=== PATIENT | female | born 2000 | race Caucasian/White ===

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

== ENCOUNTER → 2022-09-20 | Outpatient (CLI) | payer BC | END | disposition home or self-care (01) | LOC: LABWHC1 11:48 | PROVIDERS: ATTEND Psychiatry & Neurology Psychiatry | DX: F41.1 Generalized anxiety disorder (principal); F90.9 Attention-deficit hyperactivity disorder, unspecified type | CPT/HCPCS: 36415; 93005 ==

== ENCOUNTER 2023-03-02 23:13 | Emergency (ER) | payer BC ==
[2023-03-02 23:31] VITALS: BP 139/89; PULSE 108; RESP 20; TEMP 100.1
--- NOTE | 2023-03-03 00:02 | ED ---
General Adult HPI - General Chief complaint: Needlestick/Exposure Stated complaint: [facility] - Needlestick Time Seen by Provider: 03/02/23 23:39 Source: patient Mode of arrival: ambulatory Limitations: no limitations - History of Present Illness Initial comments: Patient is a 23 -year-old female presents to the emergency department for needle stick injury. Patient was poked in the finger by a blood sugar lancet. The lancet was in the cupboard she does not know who it belongs to. Patient requesting all testing she does not want any prophylactic treatment - Related Data Home Medications Medication Instructions Recorded Confirmed Montelukast Sodium [Singulair] 10 mg PEG/G-TUBE DAILY 12/28/18 03/10/20 Cetirizine HCl [Zyrtec] 10 mg PEG/G-TUBE DAILY 04/01/19 03/10/20 Ketorolac Tromethamine 10 mg PEG/G-TUBE Q8H PRN 05/26/19 03/10/20 Methylphenidate HCl [Ritalin] 10 mg PEG/G-TUBE BID@0800,1500 10/26/19 03/10/20 Naproxen 1,000 mg PEG/G-TUBE BID PRN 10/26/19 03/10/20 Ondansetron [Zofran ODT] 4 mg PEG/G-TUBE DAILY PRN 10/26/19 03/10/20 LORazepam [Ativan] 1 mg PEG/G-TUBE DAILY PRN 01/03/20 03/10/20 Prucalopride Succinate [Motegrity] 2 mg PEG/G-TUBE DAILY 01/03/20 03/10/20 Diclofenac Sodium [Voltaren] 50 mg PEG/G-TUBE DAILY PRN 03/10/20 03/10/20 Fludrocortisone [Florinef] 0.1 mg PEG/G-TUBE DAILY 03/10/20 03/10/20 Fremanezumab-Vfrm [Ajovy] 225 mg SQ Q30D 03/10/20 03/10/20 Ivabradine HCl [Corlanor] 5 mg PEG/G-TUBE BID 03/10/20 03/10/20 Magnesium Oxide [Russell] 500 mg PEG/G-TUBE DAILY 03/10/20 03/10/20 Medroxyprogesterone Acetate 150 mg IM Q90D 03/10/20 03/10/20 [Depo-Provera] Nurtec 75mg 75 mg PEG/G-TUBE DAILY PRN 03/10/20 03/10/20 SUMAtriptan succinate [Imitrex] 4 mg SQ DAILY PRN 03/10/20 03/10/20 Sennosides [Ex-Lax] 15 mg PEG/G-TUBE DAILY PRN 03/10/20 03/10/20 Zomig 5mg [place] 1 spray INTRANASAL DAILY PRN 03/10/20 03/10/20 diphenhydrAMINE [Benadryl] 25 mg PEG/G-TUBE DAILY PRN 03/10/20 03/10/20 hydrOXYzine pamoate [Vistaril] 75 mg PEG/G-TUBE HS 03/10/20 03/10/20 Allergies Allergy/AdvReac Type Severity Reaction Status Date / Time prochlorperazine Allergy Confusion Verified 03/02/23 23:31 [From Compazine] scopolamine Allergy Unknown Verified 03/02/23 23:31 Review of Systems ROS Statement: Those systems with pertinent positive or pertinent negative responses have been documented in the HPI. ROS Other: All systems not noted in ROS Statement are negative. Past Medical History Past Medical History: Syncope Additional Past Medical History / Comment(s): migraines, dizziness, h ypogylcemia, postural orthostatic tachycardia syndrome, gastroparesis has GJ tube and POTS. EOE, Alexa Danlows History of Any Multi-Drug Resistant Organisms: None Reported Past Surgical History: Orthopedic Surgery Additional Past Surgical History / Comment(s): left ankle, left knee GJ surgery, PICC, Botox into endoscopy. Past Anesthesia/Blood Transfusion Reactions: Postoperative Nausea & Vomiting (PONV) Additional Past Anesthesia/Blood Transfusion Reaction / Comment(s): Usually intubated d/t vomitting with anesthesia. Past Psychological History: ADD/ADHD, Anxiety, Depression Smoking Status: Never smoker Past Alcohol Use History: None Reported Past Drug Use History: None Reported - Past Family History Mother Family Medical History: Fibromyalgia, Osteoarthritis (OA) Additional Family Medical History / Comment(s): Anxiety and Depression. General Exam Limitations: no limitations Respiratory exam: Present: normal lung sounds bilaterally. Absent: respiratory distress, wheezes, rales, rhonchi, stridor Cardiovascular Exam: Present: regular rate, normal rhythm, normal heart sounds. Absent: systolic murmur, diastolic murmur, rubs, gallop, clicks Psychiatric exam: Present: normal affect, normal mood Skin exam: Present: warm, dry, intact, normal color. Absent: rash Course Vital Signs 03/02/23 23:29 Temperature 100.1 F H Pulse Rate 108 H Respiratory 20 Rate Blood Pressure 139/89 O2 Sat by Pulse 98 Oximetry Medical Decision Making - Medical Decision Making Was pt. sent in by a medical professional or institution (CLARA Byrd, HOME AND SCHOOL VISITOR, urgent care, hospital, or custodial...) When possible be specific @ -No Did you speak to anyone other than the patient for history (EMS, parent, family, police, friend...)? What history was obtained from this source @ -No Did you review nursing and triage notes (agree or disagree)? Why? @ -I reviewed and agree with nursing and triage notes Were old charts reviewed (outside hosp., previous admission, EMS record, old EKG, old radiological studies, urgent care reports/EKG's, custodial records)? Report findings @ -No old charts were reviewed Differential Diagnosis (chest pain, altered mental status, abdominal pain women, abdominal pain men, vaginal bleeding, weakness, fever, dyspnea, syncope, headache, dizziness, GI bleed, back pain, seizure, CVA, palpatations, mental health)? @ -not applicable EKG interpreted by me (3pts min.). @None X-rays interpreted by me (1pt min.). @ -None done CT interpreted by me (1pt min.). @ -None done U/S interpreted by me (1pt. min.). @ -None done What testing was considered but not performed or refused? (CT, X-rays, U/S, labs)? Why? @ -None What meds were considered but not given or refused? Why? @ -None Did you discuss the management of the patient with other professionals (professionals i.e. CLARA Byrd, HOME AND SCHOOL VISITOR, lab, RT, psych nurse, social organization professor, sap pi developer, teacher, horticultural technical officer, caser up)? Give summary @ -No Was smoking cessation discussed for >3mins.? @ -No Was critical care preformed (if so, how long)? @ -No Were there social determinants of health that impacted care today? How? (Homelessness, low income, unemployed, alcoholism, drug addiction, transportation, low edu. Level, literacy, decrease access to med. care, half-way, rehab)? @ -No Was there de-escalation of care discussed even if they declined (Discuss DNR or withdrawal of care, Hospice)? DNR status @ -No What co-morbidities impacted this encounter? (DM, HTN, Smoking, COPD, CAD, Cancer, CVA, ARF, Chemo, Hep., AIDS, mental health diagnosis, sleep apnea, morbid obesity)? @ -None Was patient admitted / discharged? Hospital course, mention meds given and route, prescriptions, significant lab abnormalities, going to OR and other pertinent info. @ -Discharged Undiagnosed new problem with uncertain prognosis? @ -No Drug Therapy requiring intensive monitoring for toxicity (Heparin, Nitro, Insulin, Cardizem)? @ -No Were any procedures done? @ -No Diagnosis/symptom? @ -Needle stick injury Acute or Chronic, or Acute on Chronic? @ -acute Uncomplicated (without systemic symptoms) or Complicated (systemic symptoms)? @ uncomplicated Side effects of treatment? @ -No Exacerbation, Progression, or Severe Exacerbation? @ -No Poses a threat to life or bodily function? How? (Chest pain, [place], CA, pneumonia, PE, COPD, DKA, ARF, appy, cholecystitis, CVA, Diverticulitis, Homicidal, Suicidal, threat to staff... and all critical care pts) @ -No Dr. Fernandez is my attending - Lab Data Lab Results 03/02/23 03/02/23 Range/Units 23:57 23:57 Hep Bs Antibody (Negative) Hep Bs Antibody, Quant 3.5 mIU/mL Hep C IgG Ab Nonreactive HIV-1 Antibody Non-Reactive (Non-Reactive) HIV Ag/Ab Interpret HIV p24 Antibody Non-Reactive (Non-Reactive) HIV-2 Antibody Non-Reactive (Non-Reactive) HIV P24 Antigen Non-Reactive (Non-Reactive) Disposition Clinical Impression: Needlestick injury accident Disposition: HOME SELF-CARE Condition: Good Instructions (If sedation given, give patient instructions): Needle Stick Injuries (ED) Additional Instructions: Please follow-up with your primary care provider in 1-2 days. Return to the emergency department if you experience new, concerning, or worsening symptoms. Is patient prescribed a controlled substance at d/c from ED?: No Referrals: Racano,Harriett, DO [Primary Care Provider] - 1-2 days
[2023-03-03 11:29] LABS: Hepatitis B Surface AB- Quant 3.5 mIU/mL
[2023-03-03 13:56] LABS: Hepatitis C IgG Antibody Nonreactive
[2023-03-03 16:49] LABS: HIV 2 AB Non-Reactive (Non-Reactive); HIV AB P24 Non-Reactive (Non-Reactive); HIV P24 AG Non-Reactive (Non-Reactive)
== END 2023-03-03 00:43 | disposition home or self-care (01) ==
LOC: EC 23:13
DX: Z77.21 Contact with and (suspected) exposure to potentially hazardous body fluids (principal); F90.9 Attention-deficit hyperactivity disorder, unspecified type; F41.9 Anxiety disorder, unspecified; F32.A Depression, unspecified; Z79.899 Other long term (current) drug therapy; Z88.6 Allergy status to analgesic agent; Z88.8 Allergy status to other drugs, medicaments and biological substances; W46.1XXA Contact with contaminated hypodermic needle, initial encounter
CPT/HCPCS: 36415; 86706; 86803; 87390; 99281